=== PATIENT | female | born 1950 | race Caucasian/White ===

== ENCOUNTER 2020-05-18 06:49 | Observation (INO) ==
--- NOTE | 2020-04-29 13:39 | ANES ---
Anesthesia Pre Procedure Eval HOME MEDICATIONS acetaminophen 500 mg tablet 1,000 mg PO ONCE PRN tab 01/16/20 [Last Taken Unknown] cholecalciferol (vitamin D3) 125 mcg (5,000 unit) capsule 125 mcg PO DAILY 01/16/20 [Last Taken Unknown] famotidine 20 mg tablet 20 mg PO BID 01/16/20 [Last Taken Unknown] levothyroxine 75 mcg tablet 75 mcg PO DAILY tab 01/16/20 [Last Taken Unknown] mecobalamin (vitamin B12) 1,000 mcg disintegrating tablet,sublingual 1,000 mcg SL DAILY 01/16/20 [Last Taken Unknown] multivitamin 1 tab PO DAILY 01/16/20 [Last Taken Unknown] omega-3 fatty acids 1,000 mg capsule 1,000 mg PO DAILY 01/16/20 [Last Taken Unknown] potassium gluconate 595 mg (99 mg) tablet 595 mg PO DAILY 01/16/20 [Last Taken Unknown] rivaroxaban 20 mg tablet 20 mg PO DAILY tab 01/16/20 [Last Taken Unknown] Psyllium Seed [Metamucil] 2 tbs PO DAILY 04/29/20 [Last Taken Unknown] Allergies/Adverse Reactions: Allergies Allergy/AdvReac Type Severity Reaction Status Date / Time No Known Allergies Allergy Verified 04/29/20 09:42 - Planned Procedure Planned Procedure: Left Arthroplasty Total Knee Medication List Reviewed:: Yes Allergies Verified: Yes Medical History (Last Reviewed 04/29/20 @ 13:37 by Joss Briceno CRNA) Pulmonary embolism Onset Date: Unknown 2017 Uterine cancer Onset Date: Unknown Osteoarthritis of left knee Onset Date: 12/2019 Surgical History (Last Reviewed 04/29/20 @ 13:37 by Joss Briceno CRNA) H/O colonoscopy Onset Date: Unknown H/O: hysterectomy Onset Date: Unknown Family History (Last Reviewed 04/29/20 @ 13:37 by Joss Briceno CRNA) Father Heart disease Cancer lung Mother Medical history unknown Brother Heart disease - Family Anesthesia History Family History:: no untoward family reactions to anesthesia, no familial bleeding tendencies, no family history of clotting disorders, no family history of premature - Airway/Neck/Teeth Within Normal Limits:: Yes Teeth Condition: intact Neck Exam: full range of motion Mallampatti Score: 2 Thyromental (T-M) distance: > 6 cm Mandibulo Hyoid distance: > 3 cm - Respiratory Respiratory History: PE - secondary to cancer process. Respiratory Physical: lungs clear, decreased breath sounds Smoking Status: Never smoker Sleep Apnea currently treated: No Sleep Apnea by current assessment: No - Cardiovascular Cardiac History: hypertension, hyperlipidemia Tolerate Activity: Fair Heart Sounds: S1 & S2, Regular - Gastrointestinal NPO since: instructed 2400 - Anesthesia Assessment and Plan ASA Class: PS, III - some dyspnea remains due to PE Anesthesia Type Plan: Block - adductor canal for post op pain relief., Spinal
[~2020-05-18 06:49] MED LIST: MORPHINE SULFATE 15 MG TABLET.SA PO PRN; ROPIVACAINE HCL/PF 100 MG, EPINEPHrine 0.2 MG, KETOROLAC TROMETHAMINE 30 MG in NORMAL S... IJ PRN; TRANEXAMIC ACID 1,000 MG in NORMAL SALINE 100 ML IV PRN; ceFAZolin SODIUM 1 GM VIAL IV PRN
[2020-05-18] MEDS ORDERED: ISOPROPYL ALCOHOL 480 APPL BTL MC ONE (07:05)
[2020-05-18] MEDS ORDERED: ceFAZolin SODIUM 1 GM VIAL ONE (07:05)
[2020-05-18] MEDS ORDERED: BUPIVACAINE HCL/EPINEPHRINE 50 ML VIAL IJ ONE (07:15)
[2020-05-18] MEDS ORDERED: LIDOCAINE HCL 20 ML VIAL ONE (07:15)
[2020-05-18] MEDS ORDERED: BUPIVACAINE HCL/PF 10 ML VIAL ONE (07:15)
[2020-05-18] MEDS ORDERED: PROPOFOL VIAL IV ONE ×2 (07:16→10:06)
[2020-05-18] MEDS: RINGER'S SOLUTION,LACTATED 1,000 ML IV PRN ×3 (07:30→09:40)
[2020-05-18] MEDS ORDERED: NORMAL SALINE 20 ML VIAL ONE (07:30)
[2020-05-18] MEDS ORDERED: MIDAZOLAM HCL/PF 5 MG/ML VIAL ONE (07:30)
--- NOTE | 2020-05-18 10:33 | OR ---
Operative Report - Dictated Report Narrative: Date: 05/18/2020 Preoperative diagnosis: Left knee degenerative joint disease. Postoperative diagnosis: Left knee degenerative joint disease. Procedure: Left total knee arthroplasty. Surgeon: Erasmo Velazquez M.D. Package Wrapper: Jeff Andre PA-C (provided and essential set of skilled, educated hands that assisted with transfer, positioning, prepping, draping, manipulation, retraction, placement of jigs, injection, insertion of implants, irrigation, closure wounds, and dressings all of which could not be performed by the available surgical crew) Anesthesia: Spinal with regional block and local periarticular joint injection. Complications: None Specimens: Bone. Estimated blood loss: Minimal. Tourniquet time: 90 Minutes at 325 millimeters of mercury. Retained implants: Depuy Attune size 5 narrow left lugged cemented posterior stabilized femoral component. Size 5 fixed-bearing cemented tibial platform. 5 by 8 millimeter posterior stabilized cross-linked tibial insert. 35 millimeter medialized patella button. Indications: Mrs. Barrientos is a 69-year-old female who has had longstanding left knee pain and arthrosis. This patient was followed in my clinic for period of time with significant complaints of left knee pain consistent with arthritic changes. She had failed conservative measures including, but not limited to, activity modification, passage of time, medications, and other conservative measures. Patient wished to proceed with surgical treatment. The risks, benefits, and alternatives were discussed in clinic. The risks of , blood clots, bleeding, infection, nerve/tendon blood vessel/ injury, malposition of components, intraoperative fracture, postoperative limited range of motion, persistent pain, failure of components, and need for additional procedures. Patient wished to proceed consent was obtained after answering all questions. Procedure: After marking the correct extremity on the floor, the patient was taken to the operating room. A timeout was performed. IV antibiotics consisting of Ancef were administered prior to the procedure. A regional followed by spinal anesthetic was induced by anesthesia, per my request, on the operative table with all bony prominences well-padded. Zuleta catheter was placed, and a bump was placed under the operative side buttock. SCDs and KHOA hose were utilized on the nonoperative leg. A well-padded tourniquet was applied to the operative thigh. The operative leg was then pre-scrubbed with alcohol, prepped, and draped in a standard sterile fashion. After exsanguinating the extremity with an Esmarch bandage, the tourniquet was inflated. After marking out the anterior knee for standard incision centered over the patella, the skin was incised and dissected down to the joint retinaculum. The joint retinaculum was marked out as well as the horizontal axis of the patella, and a standard medial parapatellar arthrotomy was then made. The most proximal aspect of the quadriceps tendon and the patella tendon insertion were protected from release. A partial synovectomy was performed as well as a resection of the infrapatellar fat pad. The distal femoral fat pad proximal to the trochlea was also resected using cautery. The soft tissues were elevated off the medial asp ect of the proximal tibia using a Valladares elevator ensuring that we did not transect the medial collateral ligament. Upon initial evaluation range of motion was approximately 0 degrees to 120 degrees of flexion. There were signs of advanced arthrosis in the medial, lateral, and patellofemoral joint spaces. There were large marginal osteophytes which were removed with a rongeur. The knee was hyperflexed and the patella was tucked laterally. Protecting the surrounding soft tissues with Homans, an entry drill was placed down the femoral canal using Whitesides line for guidance into the entry point. The intramedullary femoral alignment bren was utilized in order to cut the distal femur in 5 degrees of valgus resecting 10 millimeters of bone. Next the distal femur was sized to a size 5. A posterior referencing guide was utilized to place the distal femoral cutting block in 3 degrees of external rotation. This was pinned into place. The rotation was confirmed both visually and based on anatomic landmarks. The 4 in 1 cutting jig of the appropriate size was utilized in order to make all bony cuts. The gucci wing was used to ensure no notching. Retractors were utilized in order to protect surrounding soft tissues. This cut did not result in any excessive notching. We then cut the box centered over the distal femur. This allowed for resection of the anterior and posterior cr uciate ligaments. I then turned my attention to the preparation of the tibia. Using an extra medullary tibial alignment bren, 2 millimeters of bone was resected off the medial articular surface. This was made perpendicular to the mechanical axis of the joint with the alignment bren centered over the ankle mortise. The alignment bren was checked and was noted to be parallel to the mechanical axis, centered over the medial one third of the tibial tubercle, paralleling the anterior surface of the tibia. We then turned our attention to the remaining meniscus and soft tissues. These were removed while protecting the surrounding ligaments and soft tissues. The marginal osteophytes off the anterior, posterior, medial, lateral aspects of the femur and tibia were removed. The tibia was sized out to a size 5. Next the tibia was drilled and punched in an externally rotated position. Next the trial femur and a series of tibial inserts were utilized in order to allow for full extension and maximal flexion. It was found that a 8 millimeter insert gave the best range of motion and stability at multiple flexion points as well as at full extension there was less than 2 mm of gapping both medially and laterally. There is minimal anterior translation with the knee at 90 degrees of flexion and no signs of being able to dislocate the knee. The patella was then prepared. The initial thickness was 21 millimeters. This was reamed down to 12 millimeters parallel to the anterior surface of the patella. It was sized out to a size 35 medialized patella button. This was then drilled and trialed. Without any medial restraint the patella tracked appropriately and did not sublux or dislocate. At this point, it was felt these were the appropriate sized implants, and all trials were removed. The standard periarticular joint injection consisting of ropivacaine, Toradol, and epinephrine were injected into the periarticular joint tissues. The bony surfaces were thoroughly irrigated with a pulsatile-suction saline irrigation device. A bone plug from the prior resected anterior chamfer cut was placed into the drill hole at the distal femur. The bony surfaces were then dried in preparation for placement of the implants. The cement was vacuum mixed per the linotype operator's instructions. The cement was placed on the dry bony surfaces and posterior aspect of the implants. The implants were impacted into place, removing all extruded cement. At this point anesthesia administered tranexamic acid per protocol intravenously. The knee was placed in extension with axial loading with the trial insert while the cement cured. Once the cement cured, all remaining extruded cement was removed. The knee was placed through a range of motion with the trial insert to ensure appropriate range of motion and stability. Final range of motion was approximately 0 to 120 degrees. The knee was again thoroughly irrigated with pulsatile saline lavage. The final polyethylene insert was then impacted into place ensuring no retained soft tissues. The remaining periarticular joint injection was injected. A medium Hemovac drain was placed exiting superior laterally. The knee was then placed over a triangle and the arthrotomy was closed with interrupted #1 Vicryl after thoroughly irrigating the joint. The deep and subcutaneous tissues were closed with interrupted 0 and 3-0 Vicryl respectively. Skin was closed with a running subcutaneous 3-0 Monocryl and Prineo Dermabond dressing. 4 x 4's, Sof-Rol, and a full leg Johann wrap were applied. All sponge, needle, blade, and instrument counts were correct prior to closing the wounds. Postoperative condition: The patient was awoken and transferred to the postanesthesia care unit in stable condition. Plan is to be admitted to the inpatient medical/surgical floor postoperatively for 24 hours of IV antibiotics, physical therapy, occupational therapy, and medical comanagement. Patient will be weightbearing as tolerated with range of motion as tolerated. DVT prophylaxis will be with SCDs, KHOA hose, and pharmacological anticoagulation. Anticipated hospital stay is approximately 1-3 days.
[2020-05-18] MEDS ORDERED: MAG HYDROX/ALUMINUM HYD/SIMETH 30 ML UDC PO PRN (10:34)
[2020-05-18] MEDS ORDERED: ACETAMINOPHEN 500 MG TABLET PO PRN (10:34)
[2020-05-18] MEDS ORDERED: MORPHINE SULFATE 2 MG/ML DISP.SYRIN IV PRN (10:34)
[2020-05-18] MEDS ORDERED: MAGNESIUM HYDROXIDE 30 ML UDC PO PRN (10:34)
[2020-05-18] MEDS ORDERED: ZOLPIDEM TARTRATE 5 MG TABLET PO PRN (10:34)
[2020-05-18] MEDS ORDERED: diphenhydrAMINE HCL 50 MG/ML VIAL IV PRN (10:34)
--- NOTE | 2020-05-18 10:54 | ANES ---
Post Anesthesia Assessment - Vital Signs Vitals: Last Vital Signs Temp 36.4 C 05/18/20 10:45 Pulse 104 H 05/18/20 10:45 Resp 20 05/18/20 10:45 BP 85/47 L 05/18/20 10:45 Pulse Ox 97 05/18/20 10:45 Airway Patency: Normal - Mental Status Level Of Consciousness: Awake - Pain Level Pain Score: 0 - N/V Assessment Nausea/Vomiting Presence: None Dehydration:: No
--- NOTE | 2020-05-18 10:54 | ANES ---
Post Anesthesia Discharge - Transfer of Care Transfer of Care handoff given to nurse: Yes - Discharge from PACU Discharge from PACU when meets criteria: Yes
--- NOTE | 2020-05-18 10:57 | ANES ---
Anesthesia Procedure Note Procedure Note: ANESTHESIA PROCEDURE NOTE Date of procedure:[05/18/2020]. Time of procedure: . Performed by: Oj Spence CRNA [employer] We[employer] Equipment Operator: Moni Raymond RN . Preprocedure diagnosis: Left knee DJD. Post procedure diagnosis: Same. Procedure: Ultrasound-guided left adductor canal block Indications: Postoperative analgesia. Findings: Patient is brought to operating room #4, placed in the sitting position, given a spinal anesthetic. Patient was then returned to supine position. Patient's left inner thigh was prepped with ChloraPrep. Ultrasound utilized to identify the saphenous nerve in the left adductor canal. A 20-gauge 4 inch regional block needle was advanced under ultrasound guidance until tip of needle was placed proximally to saphenous nerve. 30 mL of 0.25% Marcaine with epinephrine 1-200,000 was injected with adequate spread of local anesthesia noted. Regional block needle was removed intact. EBL: Minimal. Fluids: N/A. Specimen: N/A. Post procedure condition: The patient tolerated the procedure well. No complications were noted. Thank you for this consultation Oj Spence CRNA
[2020-05-18] MEDS: DEXTROSE 5%-LACTATED RINGERS 1,000 ML IV PRN ×2 (11:49→21:15)
[2020-05-18] MEDS: ceFAZolin SODIUM 1 GM in DEXTROSE 5 % IN WATER 100 ML IV SCH ×4 (11:49→18:15)
[2020-05-18] MEDS: KETOROLAC TROMETHAMINE 15 MG/ML VIAL IV SCH ×3 (11:50→22:58)
[2020-05-18] MEDS: oxyCODONE HCL/ACETAMINOPHEN 1 TAB TABLET PO PRN ×2 (16:56→22:13)
[2020-05-18] MEDS ORDERED: SENNOSIDES/DOCUSATE SODIUM 1 TAB TABLET PO SCH (21:00)
[2020-05-18] MEDS: FAMOTIDINE 20 MG TABLET PO SCH (21:11)
[2020-05-18] MEDS: ONDANSETRON HCL/PF 2 MG/ML VIAL IV PRN (22:02)
[2020-05-19] MEDS: ceFAZolin SODIUM 1 GM in DEXTROSE 5 % IN WATER 100 ML IV SCH ×2 (00:12)
[2020-05-19] MEDS: KETOROLAC TROMETHAMINE 15 MG/ML VIAL IV SCH ×3 (04:52→16:17)
[2020-05-19] MEDS: oxyCODONE HCL/ACETAMINOPHEN 1 TAB TABLET PO PRN (05:58)
[2020-05-19] MEDS: FAMOTIDINE 20 MG TABLET PO SCH ×2 (06:58→09:06)
[2020-05-19] MEDS ORDERED: LEVOTHYROXINE SODIUM 75 MCG TABLET PO SCH (07:00)
[2020-05-19 07:09] LABS: Hematocrit 31.2 % (37.0-47.0); Hemoglobin 9.7 gm/dL (12.5-16.0); Mean Cell Volume 98.4 fl (78-100); Mean Corpuscular Hemoglobin 30.6 pg (27-31); Mean Corpuscular Hgb Conc 31.1 g/dl (32-36); Mean Platelet Volume 9.3 fl (8-12.5); Platelet Count 204 K/mm3 (150-450); Red Blood Count 3.17 M/mm3 (4.2-5.4); Red Cell Distribution Width 13.2 % (11.5-14.0); White Blood Count 7.2 K/mm3 (4.0-10.5)
[2020-05-19 07:25] LABS: Anion Gap 11.8 mmol/L (6.8-13.8); BUN/Creatinine Ratio 12.9 (9.0-21.6); Calcium * 9.1 mg/dL (7.9-10.9); Carbon Dioxide 28.9 mmol/L (24-32.6); Estimated Creat Clear 45.8; Potassium 3.7 mmol/L (3.4-4.6)
[2020-05-19] MEDS ORDERED: POTASSIUM GLUCONATE 595 MG PO SCH (09:00)
[2020-05-19] MEDS ORDERED: MULTIVITAMINS 1 CAP CAPSULE PO SCH (09:00)
[2020-05-19] MEDS ORDERED: CHOLECALCIFEROL 5,000 UNIT TABLET PO SCH (09:00)
[2020-05-19] MEDS ORDERED: PSYLLIUM SEED 1 PACKET PACKET PO SCH (09:00)
[2020-05-19] MEDS ORDERED: OMEGA-3 FATTY ACIDS 1 CAP CAPSULE PO SCH (09:00)
[2020-05-19] MEDS ORDERED: RIVAROXABAN 20 MG TABLET PO SCH (09:00)
[2020-05-19] MEDS: ONDANSETRON HCL/PF 2 MG/ML VIAL IV PRN (10:47)
--- NOTE | 2020-05-19 14:55 | DS ---
(1) Status post total left knee replacement Problem: Acute (2) Nausea & vomiting Problem: Acute Qualifiers: Vomiting type: unspecified Vomiting Intractability: unspecified Qualified Code(s): R11.2 - Nausea with vomiting, unspecified Date of Discharge:: 05/19/20 Hospital Course: 69-year-old female postop day 1 status post left total knee arthroplasty. Patient was admitted postoperatively to monitor for postoperative complications, pain management, return to p.o. diet, PT/OT per protocol. Patient is overall had an uncomplicated stay she has battled some mild nausea with minimal vomiting has been treated with Zofran without significant complication. Her pain is well controlled at this time. Patient has been up and ambulated with PT well. Still working to pass stairs prior to discharge today. Exam left lower extremity reveals sensation intact light touch, pernio dressing in place, no significant erythema or drainage, 5/5 plantar flexion dorsiflexion ankle, capillary refill brisk, mild to moderate tenderness about left knee. Patient otherwise reports no acute events. Yenni Barrientos is confined to the home due to recent surgical procedure of a left total knee arthroplasty. The needs for jail to monitor postoperative dressing for any significant erythema or drainage, and the need for physical and occupational therapy to work on activities of daily living, ambulation, and transitions. Patient will require the services in her home. The need for home health care skilled services is directly related to his time spent [id number] with this person. Plan to discharge home with the following recommendations: -Weightbearing as tolerated, assistive device as needed -PT/OT progress per protocol -P.o. diet as tolerated, Zofran for nausea PRN -DVT prophylaxis: KHOA hose bilateral knee-high, Xarelto -Pain medication Percocet to be used as prescribed p.o. -Maintain pernio dressing in place until follow-up with orthopedic outpatient clinic, monitor for signs of erythema or drainage -Call acutely if any significant changes in condition follow-up -Follow with the orthopedic outpatient clinic at 3 weeks postoperative -Disposition: Discharge home with self-care and home health for nursing and therapy Procedures Performed: see notes below List Procedures: Status post left total knee arthroplasty Results and Findings: Lab Pending Results 05/19/20 07:00: WBC 7.2, RBC 3.17 L, Hgb 9.7 L, Hct 31.2 L, MCV 98.4, MCH 30.6, MCHC 31.1 L, RDW 13.2, Plt Count 204, MPV 9.3 05/19/20 07:00: Sodium 138, Plasma Sodium 138, Potassium 3.7, Chloride 101, Carbon Dioxide 28.9, Anion Gap 11.8, BUN 11, Creatinine 0.85, Est GFR (Non-Af Amer) 71, BUN/Creatinine Ratio 12.9, Random Glucose 106, Calcium 9.1 Discharge Location: Home Disposition: [facility] Agency: [facility] Home Health Condition: Stable Discharge Activity: Activity as tolerated, Weight bearing - Assistive device PRN Discharge Diet: General/regular food Problem Oriented Discharge Instructions to Patient/Family: Total Knee Replacement, Care After, [id number] Print Language (Macanese or Swedish Available): Macanese Additional Patient Instructions (free text): Pt is wanting [facility] HH at discharge, please call and fax discharge orders and information to them. Follow up Orthopedic office appointment on MondayJune 09 at 9:00am. Prescriptions (Any new or edited meds): oxyCODONE HCL/ACETAMINOPHEN [Percocet 5 MG/325 MG] 2 tab PO Q4H PRN #60 tab PRN Reason: Moderate Pain (Pain Scale 4-6) Transmission Status: Received by [facility] #[id number] Sennosides/Docusate Sodium [Senokot-S] 2 tab PO HS #40 tab Transmission Status: Sent to [facility] #[id number] Ondansetron HCl [Zofran] 4 mg PO TID PRN #40 tab PRN Reason: Nausea Transmission Status: Pending to [facility] #[id number] Complete Home Medications List: Complete Home Medication List: acetaminophen 500 mg tablet 1,000 mg PO ONCE PRN tab 01/16/20 cholecalciferol (vitamin D3) 125 mcg (5,000 unit) capsule 125 mcg PO DAILY 01/16/20 famotidine 20 mg tablet 20 mg PO BID 01/16/20 levothyroxine 75 mcg tablet 75 mcg PO DAILY tab 01/16/20 mecobalamin (vitamin B12) 1,000 mcg disintegrating tablet,sublingual 1,000 mcg SL DAILY 01/16/20 multivitamin 1 tab PO DAILY 05/28/20 omega-3 fatty acids 1,000 mg capsule 1,000 mg PO DAILY 01/16/20 potassium gluconate 595 mg (99 mg) tablet 595 mg PO DAILY 01/16/20 rivaroxaban 20 mg tablet 20 mg PO DAILY tab 01/16/20 Psyllium Seed [Metamucil] 2 tbs PO DAILY 04/29/20 Ondansetron HCl [Zofran] 4 mg PO TID PRN #40 tab 05/19/20 Sennosides/Docusate Sodium [Senokot-S] 2 tab PO HS #40 tab 05/19/20 oxyCODONE HCL/ACETAMINOPHEN [Percocet 5 MG/325 MG] 2 tab PO Q4H PRN #60 tab 05/19/20
[2020-05-19 16:13] VITALS: BP 137/78
== END 2020-05-19 17:03 | disposition home health service (06) ==
LOC: SUR 06:49 → MS 06:49
PROVIDERS: ADMIT Orthopaedic Surgery; ATTEND Orthopaedic Surgery

== ENCOUNTER 2020-09-24 06:20 | Observation (INO) ==
[~2020-09-24 06:20] MED LIST changes: +CLONIDINE IJ PRN; +EPI IJ PRN; -ROPIVACAINE HCL/PF 100 MG, EPINEPHrine 0.2 MG, KETOROLAC TROMETHAMINE 30 MG in NORMAL S... IJ PRN; +[UNRECOGNIZED DRUG - OTHER] IJ PRN
[2020-09-24] MEDS ORDERED: ceFAZolin SODIUM 1 GM VIAL ONE (07:01)
[2020-09-24] MEDS ORDERED: ISOPROPYL ALCOHOL 480 APPL BTL MC ONE (07:01)
[2020-09-24] MEDS: RINGER'S SOLUTION,LACTATED 1,000 ML IV PRN ×2 (07:08→09:20)
--- NOTE | 2020-09-24 07:30 | ANES ---
Anesthesia Pre Procedure Eval Vitals/Labs: Last Vital Signs Temp 37.0 C 09/24/20 06:32 Pulse 85 09/24/20 06:32 Resp 18 09/24/20 06:32 BP 152/90 H 09/24/20 06:32 Pulse Ox 99 09/24/20 06:32 HOME MEDICATIONS acetaminophen 500 mg tablet 1,000 mg PO ONCE PRN tab 01/16/20 [Last Taken 09/23/20] cholecalciferol (vitamin D3) 125 mcg (5,000 unit) capsule 125 mcg PO DAILY 01/16/20 [Last Taken 09/21/20] famotidine 20 mg tablet 20 mg PO BID 01/16/20 [Last Taken 09/23/20] levothyroxine 75 mcg tablet 75 mcg PO DAILY tab 01/16/20 [Last Taken 09/22/20] mecobalamin (vitamin B12) 1,000 mcg disintegrating tablet,sublingual 1,000 mcg SL DAILY 01/16/20 [Last Taken 09/21/20] multivitamin 1 tab PO DAILY 01/16/20 [Last Taken 09/21/20] omega-3 fatty acids 1,000 mg capsule 1,000 mg PO DAILY 01/16/20 [Last Taken 09/21/20] rivaroxaban 20 mg tablet 20 mg PO DAILY tab 01/16/20 [Last Taken 09/22/20 16:00] Psyllium Seed [Metamucil] 2 tbs PO DAILY 04/29/20 [Last Taken 09/22/20] Allergies/Adverse Reactions: Allergies Allergy/AdvReac Type Severity Reaction Status Date / Time No Known Allergies Allergy Verified 09/24/20 06:43 - Planned Procedure Planned Procedure: RT Arthroplasty Total Hip Medication List Reviewed:: Yes Allergies Verified: Yes Medical History (Last Reviewed 09/24/20 @ 07:30 by Josh Mejia CRNA) GERD (gastroesophageal reflux disease) Pulmonary embolism Onset Date: Unknown 2017 Uterine cancer Onset Date: Unknown Osteoarthritis of left knee Onset Date: 12/2019 Surgical History (Last Reviewed 09/24/20 @ 07:30 by Josh Mejia CRNA) H/O colonoscopy Onset Date: Unknown H/O total knee replacement Onset Date: 05/18/20 Left total knee arthroplasty. - H/O: hysterectomy Onset Date: Unknown Family History (Last Reviewed 09/24/20 @ 07:30 by Josh Mejia CRNA) Father Heart disease Cancer lung Mother Medical history unknown Brother Heart disease Sister Breast cancer - Family Anesthesia History Family History:: no untoward family reactions to anesthesia, no familial bleeding tendencies, no family history of clotting disorders, no family history of premature - Airway/Neck/Teeth Within Normal Limits:: Yes Teeth Condition: intact Mallampatti Score: 2 Thyromental (T-M) distance: > 6 cm Mandibulo Hyoid distance: > 3 cm - Respiratory Respiratory Physical: lungs clear - Cardiovascular Tolerate Activity: Fair Heart Sounds: S1 & S2, Regular - Gastrointestinal NPO since: mn - Anesthesia Assessment and Plan ASA Class: PS, III Anesthesia Type Plan: Spinal
[2020-09-24] MEDS ORDERED: LIDOCAINE HCL 20 ML VIAL ONE (07:39)
[2020-09-24] MEDS ORDERED: fentaNYL CITRATE/PF 50 MCG/ML AMPUL ONE (07:39)
[2020-09-24] MEDS ORDERED: ONDANSETRON HCL/PF 2 MG/ML VIAL ONE (07:39)
[2020-09-24] MEDS ORDERED: PROPOFOL VIAL IV ONE (07:40)
[2020-09-24] MEDS ORDERED: SEVOFLURANE 250 ML BTL IH ONE (09:42)
[2020-09-24] MEDS ORDERED: MAGNESIUM HYDROXIDE 30 ML UDC PO PRN (09:51)
[2020-09-24] MEDS ORDERED: ZOLPIDEM TARTRATE 5 MG TABLET PO PRN (09:51)
[2020-09-24] MEDS ORDERED: ACETAMINOPHEN 500 MG TABLET PO PRN (09:51)
[2020-09-24] MEDS ORDERED: MORPHINE SULFATE 2 MG/ML DISP.SYRIN IV PRN (09:51)
[2020-09-24] MEDS ORDERED: diphenhydrAMINE HCL 50 MG/ML VIAL IV PRN (09:51)
[2020-09-24] MEDS ORDERED: MAG HYDROX/ALUMINUM HYD/SIMETH 30 ML UDC PO PRN (09:51)
[2020-09-24] MEDS ORDERED: DEXTROSE 5%-LACTATED RINGERS 1,000 ML IV PRN (09:51)
[2020-09-24] MEDS ORDERED: ONDANSETRON HCL/PF 2 MG/ML VIAL IV PRN (09:51)
--- NOTE | 2020-09-24 09:51 | OR ---
Operative Report - Dictated Report Narrative: Date: 09/24/2020 Preoperative diagnosis: Right hip degenerative joint disease. Postoperative diagnosis: Right hip degenerative joint disease. Procedure: Right total hip arthroplasty. Surgeon: Erasmo Velazquez M.D. Child And Family Services Worker: Jeff Andre PA-C (provided an essential set of skilled, educated and assisted with transfer, positioning, prepping, draping, manipulation, traction, irrigation, suturing, and placement of dressings all of which cannot be performed by the available surgical crew) Anesthesia: General and local periarticular joint injection. Complications: None Specimens: Bone. Estimated blood loss: 200 milliliters. Retained implants: Depuy Bacon size 4 femoral stem standard offset. Size 50 millimeter outside diameter 3-hole Culver Gription acetabular cup. 50 millimeter outside by 32 millimeter inside diameter highly cross-linked acetabular liner. 32 millimeter diameter + 5 millimeter cobalt chromium femoral head. Cancellous 6.5mm screw 30 millimeter length Indications: Mrs. Barrientos is a 70-year-old female who has had longstanding right hip pain and arthrosis. This patient was followed in my clinic for period of time with significant complaints of right hip pain consistent with arthritic changes. She failed conservative measures including but not limited to activity modification, passage of time, medications, and other conservative measures. Patient wished to proceed with surgical treatment. The risks, benefits, and alternatives were discussed in clinic. The risks of , blood clots, bleeding, infection, nerve/tendon blood vessel/ injury, malposition of components, dislocation and/or instability of joint, intraoperative fracture, postoperative limited range of motion, persistent pain, failure of components, and need for additional procedures. Patient wished to proceed. Consent was obtained after answering all questions. Procedure: After marking the correct extremity on the floor, the patient was taken to the operating room. A timeout was performed. IV antibiotics consisting of Ancef were administered prior to the procedure. A general anesthetic was induced by anesthesia. A Zuleta catheter was inserted. The patient was then transitioned to a lateral position on a well-padded pegboard. An axillary roll was placed. The head was in neutral position. The non- operative down leg was well-padded with SCD and KHOA hose in place. The arms were supported and padded to protect from any undue pressure on the bony prominences and nerves. A well-padded anterior and posterior pelvic and chest posts were secured in order to maintain a stable position of the pelvis. This was placed so that the pelvis was perpendicular to the floor. The body was in line with the pelvis. Once it was felt that we had protected all the bony prominences and the patient was well secured with a safety belt as well, the leg was pre-scrubbed with alcohol, prepped and draped in a standard sterile fashion. A standard anterior lateral hip incision was marked out over the greater trochanter. Ioban drapes were then placed. The skin incision was then made. Sharp dissection with a scalpel utilizing cautery for hemostasis was carried out down to the gluteus and iliotibial band fascia. This was split in line with the skin incision. The greater trochanter bursa was excised. The anterior and posterior margins of the abductor tendon were identified. The anterior 1/2-1/3 of the tendon was tagged and reflected off the greater trochanter leaving a sleeve of tendon for repair at the completion of the case. This exposed the underlying hip joint capsule. An inverted T-type capsulotomy was made extending this up to the brim of the acetabulum. Using Homans to assist with elevation of the soft tissues off the anterior, superior, and inferior aspects of the femoral neck, the hip was then placed in a figure 4 position and the femoral head was dislocated. With the leg in an externally rotated and adducted position, the cutting flag was utilized in order to memo for a standard femoral neck cut approximately a fingerbreadth above the level of the lesser trochanter. This was done with reference to pre-operative films and overall alignment. This was done while protecting the surrounding soft tissues with Homans. The femoral head was then removed and sized for guidance on preparation of the acetabulum. It was noted that there was loss of articular cartilage on both the femoral head and weightbearing portions of the acetabulum. We then returned the leg to the table and turned our attention to the acetabulum. While protecting the surrounding soft tissues, the labrum and remaining tissue in the fovea were excised using a scalpel and cautery. A series of reamers up to size 50 millimeter were utilized to prepare the acetabulum. The final reamer had good purchase and exposed the bleeding subchondral bone. The acetabulum was then thoroughly irrigated ensuring that all bony and cartilaginous materials were removed, and the final acetabular shell was impacted into place. This was placed in approximately 45 degrees of abduction and 20 degrees of anteversion utilizing the outrigger and body axis for alignment. This had a good press fit. 1 6.5mm cancellous screw was placed in the superior posterior quadrant of the acetabulum. The shell was then thoroughly irrigated and the final polyethylene was impacted into place ensuring that it seated completely. This was then protected with a sponge while we returned our attention to the femur. With the leg in a figure 4 position, utilizing Homans for soft tissue protection, a box cutting osteotome, followed by Charnley awl, followed by serial reamers and broaches were utilized in order to prepare the femur. It was found that a size 4 broach gave good axial and rotational stability. The calcar reamer was utilized in order to clean up the cut edges. The proximal femur was visualized to ensure that there were no signs of fracture. A series of heads and necks were trialed. It was found that a standard offset neck and a + 5 femoral head gave good overall stability. There was minimal longitudinal instability. With the leg in the position of sleep, the femoral head was well covered. Hip range of motion was able to reach full extension and external rotation to greater than 75 degrees prior to impingement along the posterior acetabulum. The hip was able to be flexed to greater than 90 degrees with internal rotation greater than 60 degrees prior to anterior impingement. The limb lengths were near equal based on comparison to the contralateral side and the prior placed limb length stitch. At this point it was felt these were the appropriately sized femoral components as well as neck and femoral head. The trial implants were removed. The femur was thoroughly irrigated. The final implants were impacted into place, and the hip was reduced. After ensuring that there was no damage to the proximal femur, the standard periarticular joint injection of ropivacaine, Toradol, and epinephrine were injected into the joint capsule and surrounding soft tissues. Anesthesia then administered intravenous tranexamic acid. The capsule was repaired with a single interrupted #1 Vicryl. The abductor tendon was repaired to the greater trochanter utilizing #5 Ethibond through drill holes. This was oversewn with #1 Vicryl. The fascia was closed with interrupted #1 Vicryl and #1 Stratafix barbed suture. The wounds were thoroughly irrigated as we closed in layers. The deep and subcutaneous fat layers were closed with 0 and 3-0 Vicryl respectively. The subcutaneous tissue was closed with a running 3-0 Vicryl and the skin duke. All sponge, needle, blade, and instrument counts were correct prior to closing the wounds. Sterile dressings consisting of xeroform, 4 x 4's, and tape were applied. The patient was awoken and transferred to her hospital bed and then to the postanesthesia care unit in stable condition. Postoperative condition: The plan is to admit to the medical/surgical inpatient floor postoperatively. There will be a projected 1 to 3 day hospital stay. Postoperatively 24 hours of IV antibiotics, pain control, physical therapy, occupational therapy, and medical comanagement will be utilized. Patient will be weightbearing as tolerated with anterior hip precautions. Postoperative films will be obtained in the recovery room.
[2020-09-24] MEDS ORDERED: SUCCINYLCHOLINE CHLORIDE 20 MG/ML VIAL ONE (10:40)
--- NOTE | 2020-09-24 10:54 | ANES ---
Post Anesthesia Discharge - Transfer of Care Transfer of Care handoff given to nurse: Yes - Discharge from PACU Discharge from PACU when meets criteria: Yes - Discharge to ASU Discharge to ASU-no complications/pt stable: Yes
--- NOTE | 2020-09-24 10:56 | ANES ---
Post Anesthesia Assessment - Vital Signs Vitals: Last Vital Signs Temp 36.1 C 09/24/20 10:45 Pulse 74 09/24/20 10:45 Resp 16 09/24/20 10:45 BP 100/82 09/24/20 10:45 Pulse Ox 98 09/24/20 10:45 Airway Patency: Normal - Mental Status Level Of Consciousness: Awake - Pain Level Pain Score: 0 - N/V Assessment Nausea/Vomiting Presence: None Dehydration:: No
[2020-09-24] MEDS: KETOROLAC TROMETHAMINE 15 MG/ML VIAL IV SCH ×3 (10:57→21:41)
[2020-09-24] MEDS: ceFAZolin SODIUM 1 GM in DEXTROSE 5 % IN WATER 100 ML IV SCH ×4 (10:58→17:18)
[2020-09-24] MEDS: oxyCODONE HCL/ACETAMINOPHEN 1 TAB TABLET PO PRN ×3 (12:01→21:49)
[2020-09-24] MEDS: FAMOTIDINE 20 MG TABLET PO SCH (20:11)
[2020-09-24] MEDS: MORPHINE SULFATE 15 MG TABLET.SA PO SCH (20:17)
[2020-09-24] MEDS ORDERED: SENNOSIDES/DOCUSATE SODIUM 1 TAB TABLET PO SCH (21:00)
[2020-09-25] MEDS: ceFAZolin SODIUM 1 GM in DEXTROSE 5 % IN WATER 100 ML IV SCH ×2 (00:07)
[2020-09-25] MEDS: KETOROLAC TROMETHAMINE 15 MG/ML VIAL IV SCH ×2 (03:57→10:16)
[2020-09-25] MEDS: oxyCODONE HCL/ACETAMINOPHEN 1 TAB TABLET PO PRN (05:35)
[2020-09-25 06:26] LABS: Hematocrit 28.4 % (37.0-47.0); Hemoglobin 8.8 gm/dL (12.5-16.0); Mean Cell Volume 91.3 fl (78-100); Mean Corpuscular Hemoglobin 28.3 pg (27-31); Platelet Count 174 K/mm3 (150-450); Red Blood Count 3.11 M/mm3 (4.2-5.4); Red Cell Distribution Width 14.6 % (11.5-14.0)
[2020-09-25 06:37] LABS: Anion Gap 11.4 mmol/L (6.8-13.8); BUN/Creatinine Ratio 13.3 (9.0-21.6); Carbon Dioxide 26.5 mmol/L (24-32.6); Estimated Creat Clear 59.4; Potassium 3.9 mmol/L (3.4-4.6)
[2020-09-25] MEDS ORDERED: LEVOTHYROXINE SODIUM 75 MCG TABLET PO SCH (07:00)
[2020-09-25] MEDS ORDERED: MULTIVITAMINS 1 CAP CAPSULE PO SCH (09:00)
[2020-09-25] MEDS ORDERED: PSYLLIUM SEED 1 PACKET PACKET PO SCH (09:00)
[2020-09-25] MEDS ORDERED: OMEGA-3 FATTY ACIDS 1 CAP CAPSULE PO SCH (09:00)
[2020-09-25] MEDS ORDERED: CYANOCOBALAMIN 1,000 MCG TABLET PO SCH (09:00)
[2020-09-25] MEDS ORDERED: CHOLECALCIFEROL 5,000 UNIT TABLET PO SCH (09:00)
[2020-09-25] MEDS ORDERED: RIVAROXABAN 20 MG TABLET PO SCH (09:00)
[2020-09-25] MEDS: FAMOTIDINE 20 MG TABLET PO SCH (09:55)
[2020-09-25] MEDS: MORPHINE SULFATE 15 MG TABLET.SA PO SCH (10:16)
--- NOTE | 2020-09-25 11:16 | DS ---
(1) Status post total replacement of right hip Problem: Acute Date of Discharge:: 09/25/20 Hospital Course: 70-year-old female who was admitted postoperatively status post a right total hip arthroplasty. She was admitted for continued monitoring, acute postoperative complications, pain control, PT/OT goals, acute concerns. She overall has done well she did have some mild nausea postoperatively treated with Zofran. She otherwise has passed all physical therapy goals at this time. She has been up and ambulated around the halls her pain is well controlled with p.o. pain medication. She does note that she tolerates hydrocodone better than oxycodone would like to use this for postoperative pain. Patient otherwise said no acute concerns. Exam today revealed right lower extremity--> sensation intact light touch, bandages clean/dry/intact, sensation intact light touch, 5/5 plantar flexion dorsiflexion ankle, capillary refill brisk. Yenni Barrientos is confined to home due to being status post right total hip arthroplasty. The need for care home is due to her limited ability to drive. Patient will need physical therapy as she is postoperative of a right total hip arthroplasty. The need for home health care skilled services is directly related to time spent [id number] with this patient. Patient will continue with the following recommendations: -Weightbearing as tolerated, assistive device, anterior precautions -PT/OT progress per protocol -DVT prophylaxis: Xarelto Home med -Pain control: Hydrocodone as prescribed -Nausea: Zofran as needed -Follow-up with orthopedic outpatient clinic at 2 weeks postop -Bandage changes as needed with dry gauze and tape -Disposition: Discharge home with home health, follow-up with orthopedic outpatient clinic Procedures Performed: see notes below List Procedures: Status post right total hip arthroplasty Results and Findings: Lab Pending Results 09/25/20 06:00: WBC 8.0, RBC 3.11 L, Hgb 8.8 L, Hct 28.4 L, MCV 91.3, MCH 28.3, MCHC 31.0 L, RDW 14.6 H, Plt Count 174, MPV 10.0 09/25/20 06:00: Sodium 134, Plasma Sodium 134, Potassium 3.9, Chloride 100, Carbon Dioxide 26.5, Anion Gap 11.4, BUN 10 D, Creatinine 0.75, Est GFR (Non-Af Amer) 82, BUN/Creatinine Ratio 13.3, Random Glucose 110, Calcium 8.0 Discharge Location: Home Disposition: Home Health Service Home Health Agency: [facility] Home Health Condition: Stable Face to Face Encounter completed per [facility] Guidelines: Yes Discharge Activity: Weight bearing - Assistive device as needed, anterior precautions Discharge Diet: General/regular food Referrals: India Daly, PAC [Primary Care Provider] - Problem Oriented Discharge Instructions to Patient/Family: Total Hip Replacement, [id number] Print Language (Upper Sorbian or Irish Available): Upper Sorbian Additional Patient Instructions (free text): [facility] new. Please call report and fax orders upon discharge. Follow up [facility] Orthopedic office appointment on MondayOctober 07 at 10:30. Prescriptions (Any new or edited meds): HYDROcodone/ACETAMINOPHEN [Hydrocodon-Acetaminophen 5-325] 1 - 2 each PO Q4H #50 tablet Transmission Status: Sent to [facility] #[id number] Ondansetron [Zofran Odt] 4 mg PO Q8H PRN #20 tab PRN Reason: Nausea Transmission Status: Pending to [facility] #[id number] Complete Home Medications List: Complete Home Medication List: acetaminophen 500 mg tablet 1,000 mg PO ONCE PRN tab 01/16/20 cholecalciferol (vitamin D3) 125 mcg (5,000 unit) capsule 125 mcg PO DAILY 01/16/20 famotidine 20 mg tablet 20 mg PO BID 01/16/20 levothyroxine 75 mcg tablet 75 mcg PO DAILY tab 01/16/20 mecobalamin (vitamin B12) 1,000 mcg disintegrating tablet,sublingual 1,000 mcg SL DAILY 01/16/20 multivitamin 1 tab PO DAILY 01/16/20 omega-3 fatty acids 1,000 mg capsule 1,000 mg PO DAILY 01/16/20 rivaroxaban 20 mg tablet 20 mg PO DAILY tab 01/16/20 Psyllium Seed [Metamucil] 2 tbs PO DAILY 04/29/20 HYDROcodone/ACETAMINOPHEN [Hydrocodon-Acetaminophen 5-325] 1 - 2 each PO Q4H #50 tablet 09/25/20 Ondansetron [Zofran Odt] 4 mg PO Q8H PRN #20 tab 09/25/20
[2020-09-25 12:48] VITALS: BP 108/60
== END 2020-09-25 13:20 | disposition home health service (06) ==
LOC: SUR 06:20 → MS 06:20
PROVIDERS: ADMIT Orthopaedic Surgery; ATTEND Orthopaedic Surgery
DX: M16.11 Unilateral primary osteoarthritis, right hip